=== PATIENT | male | born 1990 | race Caucasian/White ===

== ENCOUNTER → 2016-07-19 | Outpatient (CLI) | payer BC ==
--- NOTE | 2016-07-19 11:27 | REP ---
LEFT ELBOW, FOUR VIEWS: HISTORY: Contusion. There is no acute fracture or dislocation. The joint space is normal in appearance. An osteophyte is present on the posterior ulna. IMPRESSION: There is no acute fracture or dislocation. Signed by Yamil Vargas MD 07/19/2016 12:04 P
== END ==
LOC: M WUC 09:59
PROVIDERS: ATTEND Physician Assistant
DX: S50.02XA Contusion of left elbow, initial encounter (principal); X58.XXXA Exposure to other specified factors, initial encounter; Y93.9 Activity, unspecified; Y92.9 Unspecified place or not applicable; Y99.8 Other external cause status

== ENCOUNTER → 2017-05-11 | Outpatient (CLI) | payer BC ==
--- NOTE | 2017-05-11 15:21 | REP ---
RIGHT KNEE SERIES: FIVE VIEWS. HISTORY: No known injury. FINDINGS: Five views of the right knee demonstrate nonarticular spurring at the inferior pole of the patella at the patellar tendon insertion site. This may reflect chronic patellar tendonitis. Bones, joints, and soft tissues are otherwise unremarkable. IMPRESSION: Nonarticular spurring at the lower pole of the patella question chronic patellar tendonitis. Otherwise negative. Signed by Jason Richards MD 05/11/2017 04:16 P
== END ==
LOC: M WUC 10:53
PROVIDERS: ATTEND Physician Assistant
DX: M22.2X1 Patellofemoral disorders, right knee (principal)

== ENCOUNTER → 2018-02-19 | Outpatient (CLI) | payer BC | LOC: M WUC 14:24 | DX: M16.0 Bilateral primary osteoarthritis of hip (principal); M51.36 Other intervertebral disc degeneration, lumbar region | CPT/HCPCS: 72110 ==

== ENCOUNTER → 2018-02-19 | Outpatient (CLI) | payer BC ==
[2018-02-19 16:29] LABS: BASO # 0.1 10^3/uL (0.0-0.2); BASO % 0.7 % (0.0-1.0); EOS # 0.5 10^3/uL (0.0-0.50); EOS % 6.1 % (0.0-3.0); HEMATOCRIT 42.5 % (42.0-52.0); HEMOGLOBIN 14.4 g/dl (13.5-17.5); IMMATURE GRANULOCYTE % 0.4 % (0-3.0); LYMPH # 2.9 10^3/uL (1.5-4.5); LYMPH % 34.4 % (24.0-44.0); MEAN CORPUSCULAR HGB CONC 33.9 g/dl (32.0-36.5); MEAN CORPUSCULAR VOLUME 91.4 fl (80.0-96.0); MONO # 0.6 10^3/uL (0.0-0.8); NEUTROPHILS # 4.4 10^3/uL (1.8-7.7); NEUTROPHILS % 51.4 % (36.0-66.0); PLATELET COUNT, AUTOMATED 295 10^3/uL (150-450); RED BLOOD COUNT 4.65 10^6/uL (4.30-6.10); RED CELL DISTRIBUTION WIDTH 12.2 % (11.5-14.5); WHITE BLOOD COUNT 8.5 10^3/uL (4.0-10.0)
[2018-02-19 17:21] LABS: ALBUMIN 4.1 GM/DL (3.2-5.2); ALBUMIN/GLOBULIN RATIO 1.24 (1.00-1.93); ALKALINE PHOSPHATASE 82 U/L (45-117); ALT/SGPT 33 U/L (12-78); ANION GAP 10 MEQ/L (8-16); AST/SGOT 20 U/L (7-37); BILIRUBIN,TOTAL 0.5 MG/DL (0.2-1.0); BLOOD UREA NITROGEN 24 MG/DL (7-18); C REACTIVE PROTEIN QUANTITATIV < 0.30 MG/DL (0.00-0.30); CALCIUM LEVEL 9.5 MG/DL (8.5-10.1); CARBON DIOXIDE LEVEL 29 MEQ/L (21-32); CHLORIDE LEVEL 103 MEQ/L (98-107); CREATININE FOR GFR 1.05 MG/DL (0.70-1.30); FREE T4 1.01 NG/DL (0.76-1.46); GLOMERULAR FILTRATION RATE > 60.0 (>60); POTASSIUM SERUM 5.1 MEQ/L (3.5-5.1); RHEUMATOID FACTOR QUANT < 10.0 IU/ML (<15.0); SODIUM LEVEL 142 MEQ/L (136-145); THYROID STIMULATING HORMONE 0.614 uIU/ML (0.358-3.740); TOTAL PROTEIN 7.4 GM/DL (6.4-8.2)
[2018-02-20 06:51] LABS: GLUCOSE, FASTING 94 MG/DL (70-100)
[2018-02-21 10:15] LABS: ANTINUCLEAR ANTIBODIES DIRECT Negative (Negative)
== END ==
LOC: M WUC 15:00
DX: M25.552 Pain in left hip (principal)
CPT/HCPCS: 84443

== ENCOUNTER → 2018-08-02 | Outpatient (CLI) | payer BC | LOC: M WUC 13:55 | PROVIDERS: ATTEND Orthopaedic Surgery | DX: M16.0 Bilateral primary osteoarthritis of hip (principal) ==

== ENCOUNTER → 2023-08-08 | Outpatient (REF) | payer BC | LOC: M SMT 15:37 | PROVIDERS: ATTEND Urology | DX: Z30.2 Encounter for sterilization (principal) ==

== ENCOUNTER → 2023-10-03 | Outpatient (REF) | payer BC ==
[2023-10-03 11:31] LABS: SEMEN APPEARANCE OPAQUE (OPAQUE)
[2023-10-03 11:32] LABS: SEMEN VISCOSITY LIQUID (LIQUID); SEMEN VOLUME 1.3 ml (2.0-5.0); SEMEN pH 8.5 (7.0-8.0); WBC CONCENTRATION >1 M/ml (<=1 M/ml)
== END ==
LOC: M SMT 11:03
PROVIDERS: ATTEND Urology
DX: Z30.8 Encounter for other contraceptive management (principal)